=== PATIENT | female | born 1995 | race Caucasian/White ===

== ENCOUNTER → 2021-05-08 | Outpatient (CLI) | payer OTHER | LOC: KOH-I 09:45 | DX: S83.511A Sprain of anterior cruciate ligament of right knee, initial encounter (principal); S83.521A Sprain of posterior cruciate ligament of right knee, initial encounter; S70.11XA Contusion of right thigh, initial encounter; S82.831A Other fracture of upper and lower end of right fibula, initial encounter for closed fracture; S72.431A Displaced fracture of medial condyle of right femur, initial encounter for closed fracture; S83.421A Sprain of lateral collateral ligament of right knee, initial encounter | CPT/HCPCS: 73721 ==